=== PATIENT | female | born 1940 | race African-American/Black ===

== ENCOUNTER 2018-06-12 21:57 | Inpatient (IN) ==
[2018-06-12] MEDS ORDERED: SODIUM CHLORIDE 0.9% 1,000 ML IV STA (22:34)
[2018-06-12] MEDS ORDERED: FUROSEMIDE 100 MG/10 ML VIAL IV STA (22:34)
[2018-06-12 22:58] LABS: ABG Base Excess 2.8 MMOL/L (-2.5-2.5); ABG HCO3 26.8 MMOL/L (20-26); ABG Oxygen Saturation 93.3 % (95-100); ABG PCO2 49.3 MM HG (35-48); ABG PH 7.376 (7.35-7.45); ABG PO2 73.5 MM HG (80-95); ABG TCO2 25.7 MMOL/L (23-27)
[2018-06-12 23:00] LABS: Basophils % 0.3 % (0.0-0.8); Eosinophils % 0.4 % (0.00-10.9); Hematocrit 38.1 VOL% (35.7-47.0); Hemoglobin 11.8 GM/DL (12.0-16.0); Immature Granulocytes % 0.3 %; Immature Granulocytes Absolute 0.03 #; Lymphocytes # 2.4 10*3/uL (1.4-4.0); Mean Corpuscular Hemoglobin 30 PG (27-34); Mean Corpuscular Volume 96.5 FL (87-102); Mean Platelet Volume 11.7 FL (9.6-12.0); Monocytes # 0.8 10*3/uL (0.11-0.8); Monocytes % 9.1 % (1.7-12.7); Neutrophils # 5.8 10*3/uL (1.4-7.4); Neutrophils % 63.9 % (38.7-73.9); Platelet Count 178 T/CUMM (130-400); Red Blood Count 3.95 MC/CUMM (3.8-5.5); Red Cell Distribution Width 15.1 % (9.3-17.3); White Blood Count 9.1 T/CUMM (4-12)
[2018-06-12 23:50] LABS: Alanine Aminotransferase 17 U/L (13-56); Albumin 3.1 G/DL (3.4-5.0); Alkaline Phosphatase 65 U/L (45-117); Aspartate Amino Transferase 24 U/L (0-37); Bilirubin,Total < 0.39 MG/DL (0.2-1.0); Blood Urea Nitrogen 83 MG/DL (7-18); Calcium 8.7 MG/DL (8.5-10.1); Glucose 102 MG/DL (74-106); Osmolality,Calculated 316.4 MOS/KG (273-304); Potassium 3.1 MMOL/L (3.5-5.1); Sodium 147 MMOL/L (136-145); Total Protein 8.4 G/DL (6.4-8.3)
[2018-06-13 01:25] LABS: Apearance,Urine Slightly Hazy (Clear); Bacteria,Urine Occasional /HPF (Few); Bilirubin,Urine Negative (Negative); Blood, Urine Moderate mg/dL (Negative); Glucose,Urine (UA) Negative (Negative); Ketones,Urine Negative (Negative); Nitrite,Urine Negative (Negative); Protein,Urine Negative; RBC,Urine 2 /HPF (0-4); Squamous Epithelial Cell,Urine Few /HPF (0-10); Transitional Epi Cells,Urine Occasional /HPF (<1); Urine Color Straw (Yellow); Urine Specific Gravity 1.005 (1.001-1.035); Urine Urobilinogen < 2.0 EU/DL (0.2-1.0); WBC,Urine 15 /HPF (0-6)
[2018-06-13] MEDS ORDERED: SODIUM CHLORIDE 0.9% 1,000 ML IV STA (01:27)
[2018-06-13 02:30] LABS: ABG Base Excess -1.4 MMOL/L (-2.5-2.5); ABG HCO3 23.2 MMOL/L (20-26); ABG Oxygen Saturation 99.5 % (95-100); ABG PCO2 52.2 MM HG (35-48); ABG PH 7.299 (7.35-7.45); ABG TCO2 23.5 MMOL/L (23-27)
[2018-06-13] MEDS ORDERED: PIPERACILLIN/TAZOBACTAM 2,250 MG in SODIUM CHLORIDE 0.9% 100 ML IV STA (02:48)
[2018-06-13] MEDS ORDERED: PIPERACILLIN/TAZOBACTAM 3,375 MG in SODIUM CHLORIDE 0.9% 100 ML IV STA (03:24)
[2018-06-13] MEDS ORDERED: PIPERACILLIN/TAZOBACTAM 3,375 MG VIAL IV ONE (03:25)
[2018-06-13] MEDS: cefTRIAXone 1,000 MG in SYRINGE 1 EACH IV SCH (05:08)
[2018-06-13] MEDS: AZITHROMYCIN INJ 500 MG in SODIUM CHLORIDE 0.9% 250 ML IV SCH (07:12)
[2018-06-13] MEDS: ALBUTEROL/IPRATROPIUM 3 ML NEB RESP TX SCH ×3 (07:17→20:30)
[2018-06-13] MEDS ORDERED: MULTIVITAMIN LIQUID (CENTRUM) 60 ML BOTTLE PER TUBE SCH (08:00)
[2018-06-13] MEDS: THEOPHYLLINE 5.33 MG/ML 30 ML/BOTTLE PER TUBE SCH ×2 (08:40→20:26)
[2018-06-13] MEDS: ASPIRIN CHEW 81 MG TABLET PO SCH (08:42)
[2018-06-13] MEDS: VENLAFAXINE 75 MG TABLET PER TUBE SCH ×2 (08:42→20:25)
[2018-06-13] MEDS: BACLOFEN 10 MG TABLET PER TUBE SCH ×2 (08:42→20:25)
[2018-06-13] MEDS: LINACLOTIDE 145 MCG CAPSULE PER TUBE SCH (08:42)
[2018-06-13] MEDS: DILTIAZEM 60 MG TABLET PO SCH ×3 (08:42→20:26)
[2018-06-13] MEDS: PREGABALIN 100 MG CAPSULE PER TUBE SCH ×2 (08:42→20:25)
[2018-06-13] MEDS: FUROSEMIDE 40 MG TABLET PER TUBE SCH (08:43)
[2018-06-13] MEDS: METOPROLOL TARTRATE 50 MG TABLET PER TUBE SCH ×2 (08:43→20:26)
[2018-06-13] MEDS: CHOLECALCIFEROL 1,000 UNIT TABLET PER TUBE SCH (08:43)
[2018-06-13] MEDS: hydrALAZINE 25 MG TABLET PER TUBE SCH ×2 (08:43→20:26)
[2018-06-13] MEDS: FAMOTIDINE 20 MG TABLET PER TUBE SCH (08:43)
[2018-06-13] MEDS: MULTIVITAMIN LIQUID (CENTRUM) 60 ML BOTTLE PER TUBE SCH (08:56)
[2018-06-13] MEDS: LACTULOSE 20 GM/30 ML UDCUP PER TUBE SCH ×2 (08:56→20:26)
[2018-06-13] MEDS ORDERED: METHYLNALTREXONE BROMIDE 450 MG PER TUBE SCH (09:00)
[2018-06-13] MEDS ORDERED: GLUCAGON 1 MG VIAL IM PRN (10:02)
[2018-06-13] MEDS: INSULIN REGULAR 100 UNIT/ML SUBCUT SCH ×3 (13:43→23:24)
[2018-06-13] MEDS: ENOXAPARIN 30 MG/0.3 ML SYRINGE SUBCUT SCH (14:30)
[2018-06-13] MEDS: MONTELUKAST 10 MG TABLET PER TUBE SCH (17:56)
[2018-06-14] MEDS: ALBUTEROL/IPRATROPIUM 3 ML NEB RESP TX SCH ×4 (02:23→18:56)
[2018-06-14] MEDS: cefTRIAXone 1,000 MG in SYRINGE 1 EACH IV SCH (04:27)
[2018-06-14 04:44] LABS: Basophils % 0.2 % (0.0-0.8); Eosinophils % 0.1 % (0.00-10.9); Hematocrit 44.2 VOL% (35.7-47.0); Hemoglobin 13.2 GM/DL (12.0-16.0); Immature Granulocytes % 0.5 %; Immature Granulocytes Absolute 0.09 #; Lymphocytes # 1.2 10*3/uL (1.4-4.0); Lymphocytes % 7.1 % (21.3-54.2); Mean Corpuscular HGB Conc 29.9 GM/DL (32-36); Mean Corpuscular Hemoglobin 31 PG (27-34); Mean Corpuscular Volume 102.6 FL (87-102); Mean Platelet Volume 12.5 FL (9.6-12.0); Monocytes # 1.2 10*3/uL (0.11-0.8); Monocytes % 6.9 % (1.7-12.7); NRBC # 0.02 10*3/uL; Neutrophils # 14.5 10*3/uL (1.4-7.4); Neutrophils % 85.2 % (38.7-73.9); Platelet Count 128 T/CUMM (130-400); Red Blood Count 4.31 MC/CUMM (3.8-5.5); Red Cell Distribution Width 15.5 % (9.3-17.3)
[2018-06-14 05:23] LABS: Prealbumin 20.6 MG/DL (20-40)
[2018-06-14] MEDS: INSULIN REGULAR 100 UNIT/ML SUBCUT SCH ×4 (05:53→23:55)
[2018-06-14] MEDS: AZITHROMYCIN INJ 500 MG in SODIUM CHLORIDE 0.9% 250 ML IV SCH (05:54)
[2018-06-14 06:11] LABS: Albumin 2.6 G/DL (3.4-5.0); Bilirubin,Total 0.4 MG/DL (0.2-1.0); Calcium 8.6 MG/DL (8.5-10.1); Osmolality,Calculated 313.1 MOS/KG (273-304); Potassium 2.9 MMOL/L (3.5-5.1); Total Protein 8.6 G/DL (6.4-8.3)
[2018-06-14] MEDS: MULTIVITAMIN LIQUID (CENTRUM) 60 ML BOTTLE PER TUBE SCH (08:25)
[2018-06-14] MEDS: THEOPHYLLINE 5.33 MG/ML 30 ML/BOTTLE PER TUBE SCH ×2 (08:25→20:48)
[2018-06-14] MEDS: CHOLECALCIFEROL 1,000 UNIT TABLET PER TUBE SCH (08:25)
[2018-06-14] MEDS: ASPIRIN CHEW 81 MG TABLET PO SCH (08:26)
[2018-06-14] MEDS: PREGABALIN 100 MG CAPSULE PER TUBE SCH ×2 (08:26→20:47)
[2018-06-14] MEDS: LINACLOTIDE 145 MCG CAPSULE PER TUBE SCH (08:26)
[2018-06-14] MEDS: METOPROLOL TARTRATE 50 MG TABLET PER TUBE SCH ×2 (08:26→20:47)
[2018-06-14] MEDS: FAMOTIDINE 20 MG TABLET PER TUBE SCH (08:26)
[2018-06-14] MEDS: hydrALAZINE 25 MG TABLET PER TUBE SCH ×2 (08:26→20:47)
[2018-06-14] MEDS: FUROSEMIDE 40 MG TABLET PER TUBE SCH (08:26)
[2018-06-14] MEDS: BACLOFEN 10 MG TABLET PER TUBE SCH ×2 (08:26→20:47)
[2018-06-14] MEDS: DILTIAZEM 60 MG TABLET PO SCH ×3 (08:26→20:47)
[2018-06-14] MEDS: VENLAFAXINE 75 MG TABLET PER TUBE SCH ×2 (08:26→20:47)
[2018-06-14] MEDS: LACTULOSE 20 GM/30 ML UDCUP PER TUBE SCH (08:27)
[2018-06-14] MEDS: POTASSIUM CHLORIDE RIDER 10 MEQ in PREMIX 1 EACH IV SCH ×2 (08:43→09:50)
[2018-06-14] MEDS: POTASSIUM CHLORIDE 20 MEQ/15 ML UDCUP PER TUBE PRN ×2 (10:09→14:02)
[2018-06-14] MEDS: ENOXAPARIN 30 MG/0.3 ML SYRINGE SUBCUT SCH (14:07)
[2018-06-14] MEDS: MONTELUKAST 10 MG TABLET PER TUBE SCH (16:27)
[2018-06-15] MEDS: POTASSIUM CHLORIDE 20 MEQ/15 ML UDCUP PER TUBE PRN ×3 (00:06→08:10)
[2018-06-15] MEDS: ALBUTEROL/IPRATROPIUM 3 ML NEB RESP TX SCH ×4 (00:58→19:45)
[2018-06-15] MEDS: cefTRIAXone 1,000 MG in SYRINGE 1 EACH IV SCH (03:08)
[2018-06-15] MEDS: INSULIN REGULAR 100 UNIT/ML SUBCUT SCH ×3 (05:18→18:55)
[2018-06-15 05:24] LABS: Calcium 8.9 MG/DL (8.5-10.1); Potassium 3.6 MMOL/L (3.5-5.1)
[2018-06-15] MEDS: AZITHROMYCIN INJ 500 MG in SODIUM CHLORIDE 0.9% 250 ML IV SCH (05:30)
[2018-06-15] MEDS: MULTIVITAMIN LIQUID (CENTRUM) 60 ML BOTTLE PER TUBE SCH (08:10)
[2018-06-15] MEDS: LINACLOTIDE 145 MCG CAPSULE PER TUBE SCH (08:10)
[2018-06-15] MEDS: VENLAFAXINE 75 MG TABLET PER TUBE SCH ×2 (08:11→20:07)
[2018-06-15] MEDS: PREGABALIN 100 MG CAPSULE PER TUBE SCH ×2 (08:11→20:05)
[2018-06-15] MEDS: FUROSEMIDE 40 MG TABLET PER TUBE SCH (08:11)
[2018-06-15] MEDS: FAMOTIDINE 20 MG TABLET PER TUBE SCH (08:11)
[2018-06-15] MEDS: ASPIRIN CHEW 81 MG TABLET PO SCH (08:11)
[2018-06-15] MEDS: BACLOFEN 10 MG TABLET PER TUBE SCH ×2 (08:11→20:07)
[2018-06-15] MEDS: DILTIAZEM 60 MG TABLET PO SCH ×3 (08:11→20:07)
[2018-06-15] MEDS: CHOLECALCIFEROL 1,000 UNIT TABLET PER TUBE SCH (08:12)
[2018-06-15] MEDS: hydrALAZINE 25 MG TABLET PER TUBE SCH ×2 (08:12→20:04)
[2018-06-15] MEDS: METOPROLOL TARTRATE 50 MG TABLET PER TUBE SCH ×2 (08:12→20:07)
[2018-06-15] MEDS: THEOPHYLLINE 5.33 MG/ML 30 ML/BOTTLE PER TUBE SCH ×2 (08:13→20:15)
[2018-06-15] MEDS: fentaNYL 25 MCG/HR PATCH TRANSDERM SCH (08:14)
[2018-06-15] MEDS ORDERED: CIPROFLOXACIN 100 MG/ML 100 ML/BOTTLE PEG SCH (10:00)
[2018-06-15] MEDS: ENOXAPARIN 30 MG/0.3 ML SYRINGE SUBCUT SCH (13:05)
[2018-06-15] MEDS ORDERED: hydrALAZINE 20 MG/1 ML VIAL ONE ×2 (17:42→19:57)
[2018-06-15] MEDS: MONTELUKAST 10 MG TABLET PER TUBE SCH (17:50)
[2018-06-15] MEDS: DEXTROSE 50% 25 GM/50 ML VIAL IV PRN (18:53)
[2018-06-15] MEDS: hydrALAZINE 20 MG/1 ML VIAL IV PRN (20:00)
[2018-06-16] MEDS: INSULIN REGULAR 100 UNIT/ML SUBCUT SCH ×4 (00:14→17:45)
[2018-06-16] MEDS: DEXTROSE 50% 25 GM/50 ML VIAL IV PRN (00:14)
[2018-06-16] MEDS: hydrALAZINE 20 MG/1 ML VIAL IV PRN ×2 (00:16→04:38)
[2018-06-16] MEDS: ALBUTEROL/IPRATROPIUM 3 ML NEB RESP TX SCH ×4 (01:26→19:20)
[2018-06-16 04:24] LABS: Calcium 9.1 MG/DL (8.5-10.1); Osmolality,Calculated 299.4 MOS/KG (273-304); Potassium 3.9 MMOL/L (3.5-5.1); Prealbumin 13.9 MG/DL (20-40)
[2018-06-16] MEDS: cefTRIAXone 1,000 MG in SYRINGE 1 EACH IV SCH (04:38)
[2018-06-16] MEDS: ASPIRIN CHEW 81 MG TABLET PO SCH (08:48)
[2018-06-16] MEDS: BACLOFEN 10 MG TABLET PER TUBE SCH ×2 (08:48→21:29)
[2018-06-16] MEDS: METOPROLOL TARTRATE 50 MG TABLET PER TUBE SCH (08:48)
[2018-06-16] MEDS: FAMOTIDINE 20 MG TABLET PER TUBE SCH (08:49)
[2018-06-16] MEDS: FUROSEMIDE 40 MG TABLET PER TUBE SCH (08:49)
[2018-06-16] MEDS: hydrALAZINE 25 MG TABLET PER TUBE SCH ×2 (08:49→21:30)
[2018-06-16] MEDS: CHOLECALCIFEROL 1,000 UNIT TABLET PER TUBE SCH (08:49)
[2018-06-16] MEDS: PREGABALIN 100 MG CAPSULE PER TUBE SCH ×2 (08:49→21:31)
[2018-06-16] MEDS: VENLAFAXINE 75 MG TABLET PER TUBE SCH ×2 (08:49→21:29)
[2018-06-16] MEDS: DILTIAZEM 60 MG TABLET PO SCH ×3 (08:49→21:30)
[2018-06-16] MEDS: LINACLOTIDE 145 MCG CAPSULE PER TUBE SCH (08:50)
[2018-06-16] MEDS ORDERED: cloNIDine 0.3 MG/24 HR PATCH TRANSDERM SCH (11:00)
[2018-06-16] MEDS: ENOXAPARIN 30 MG/0.3 ML SYRINGE SUBCUT SCH (11:42)
[2018-06-16] MEDS: THEOPHYLLINE 5.33 MG/ML 30 ML/BOTTLE PER TUBE SCH ×2 (11:43→21:29)
[2018-06-16] MEDS: MULTIVITAMIN LIQUID (CENTRUM) 60 ML BOTTLE PER TUBE SCH (11:44)
[2018-06-16] MEDS: MONTELUKAST 10 MG TABLET PER TUBE SCH (16:00)
[2018-06-16] MEDS: METOPROLOL TARTRATE 100 MG TABLET PER TUBE SCH (21:30)
[2018-06-17] MEDS: INSULIN REGULAR 100 UNIT/ML SUBCUT SCH ×4 (00:15→18:34)
[2018-06-17] MEDS: ALBUTEROL/IPRATROPIUM 3 ML NEB RESP TX SCH ×4 (01:42→20:25)
[2018-06-17] MEDS: cefTRIAXone 1,000 MG in SYRINGE 1 EACH IV SCH (03:45)
[2018-06-17 07:58] LABS: Calcium 8.8 MG/DL (8.5-10.1); Osmolality,Calculated 302.4 MOS/KG (273-304); Potassium 3.7 MMOL/L (3.5-5.1)
[2018-06-17] MEDS: ASPIRIN CHEW 81 MG TABLET PO SCH (10:31)
[2018-06-17] MEDS: hydrALAZINE 25 MG TABLET PER TUBE SCH ×2 (10:31→21:12)
[2018-06-17] MEDS: FUROSEMIDE 40 MG TABLET PER TUBE SCH (10:32)
[2018-06-17] MEDS: DILTIAZEM 60 MG TABLET PO SCH ×3 (10:32→21:12)
[2018-06-17] MEDS: VENLAFAXINE 75 MG TABLET PER TUBE SCH ×2 (10:32→21:12)
[2018-06-17] MEDS: BACLOFEN 10 MG TABLET PER TUBE SCH ×2 (10:33→21:12)
[2018-06-17] MEDS: FAMOTIDINE 20 MG TABLET PER TUBE SCH (10:33)
[2018-06-17] MEDS: PREGABALIN 100 MG CAPSULE PER TUBE SCH ×2 (10:33→21:12)
[2018-06-17] MEDS: METOPROLOL TARTRATE 100 MG TABLET PER TUBE SCH ×2 (10:33→21:12)
[2018-06-17] MEDS: PIPERACILLIN/TAZOBACTAM 3,375 MG in SODIUM CHLORIDE 0.9% 100 ML IV SCH ×2 (10:45→17:50)
[2018-06-17] MEDS: THEOPHYLLINE 5.33 MG/ML 30 ML/BOTTLE PER TUBE SCH ×2 (10:46→21:12)
[2018-06-17] MEDS: MULTIVITAMIN LIQUID (CENTRUM) 60 ML BOTTLE PER TUBE SCH (10:46)
[2018-06-17] MEDS: ENOXAPARIN 40 MG/0.4 ML SYRINGE SUBCUT SCH (10:47)
[2018-06-17] MEDS: CHOLECALCIFEROL 1,000 UNIT TABLET PER TUBE SCH (12:55)
[2018-06-17] MEDS: LINACLOTIDE 145 MCG CAPSULE PER TUBE SCH (12:56)
[2018-06-17] MEDS: VANCOMYCIN INJ 1,250 MG in SODIUM CHLORIDE 0.9% 250 ML IV SCH (14:13)
[2018-06-17] MEDS: MONTELUKAST 10 MG TABLET PER TUBE SCH (17:46)
[2018-06-18] MEDS: INSULIN REGULAR 100 UNIT/ML SUBCUT SCH ×4 (01:15→19:03)
[2018-06-18] MEDS: ALBUTEROL/IPRATROPIUM 3 ML NEB RESP TX SCH ×4 (01:25→19:54)
[2018-06-18] MEDS: PIPERACILLIN/TAZOBACTAM 3,375 MG in SODIUM CHLORIDE 0.9% 100 ML IV SCH ×3 (02:34→17:23)
[2018-06-18 06:24] LABS: Basophils % 0.5 % (0.0-0.8); Eosinophils # 0.1 10*3/uL (0.0-0.87); Eosinophils % 1.4 % (0.00-10.9); Hematocrit 35.9 VOL% (35.7-47.0); Hemoglobin 11.4 GM/DL (12.0-16.0); Immature Granulocytes % 0.4 %; Immature Granulocytes Absolute 0.03 #; Lymphocytes % 25.6 % (21.3-54.2); Mean Corpuscular HGB Conc 31.8 GM/DL (32-36); Mean Corpuscular Hemoglobin 30 PG (27-34); Mean Corpuscular Volume 93.2 FL (87-102); Mean Platelet Volume 12.5 FL (9.6-12.0); Monocytes # 0.5 10*3/uL (0.11-0.8); Monocytes % 6.7 % (1.7-12.7); Neutrophils # 5.2 10*3/uL (1.4-7.4); Neutrophils % 65.4 % (38.7-73.9); Platelet Count 134 T/CUMM (130-400); Red Blood Count 3.85 MC/CUMM (3.8-5.5); Red Cell Distribution Width 15.7 % (9.3-17.3); White Blood Count 7.9 T/CUMM (4-12)
[2018-06-18 07:18] LABS: Calcium 8.9 MG/DL (8.5-10.1); Osmolality,Calculated 298.7 MOS/KG (273-304); Potassium 3.8 MMOL/L (3.5-5.1)
[2018-06-18] MEDS: METOPROLOL TARTRATE 100 MG TABLET PER TUBE SCH ×2 (10:41→21:09)
[2018-06-18] MEDS: CHOLECALCIFEROL 1,000 UNIT TABLET PER TUBE SCH (10:41)
[2018-06-18] MEDS: THEOPHYLLINE 5.33 MG/ML 30 ML/BOTTLE PER TUBE SCH ×2 (10:41→21:08)
[2018-06-18] MEDS: ENOXAPARIN 40 MG/0.4 ML SYRINGE SUBCUT SCH (10:41)
[2018-06-18] MEDS: FUROSEMIDE 40 MG TABLET PER TUBE SCH (10:42)
[2018-06-18] MEDS: FAMOTIDINE 20 MG TABLET PER TUBE SCH (10:42)
[2018-06-18] MEDS: DILTIAZEM 60 MG TABLET PO SCH ×3 (10:42→21:09)
[2018-06-18] MEDS: ASPIRIN CHEW 81 MG TABLET PO SCH (10:42)
[2018-06-18] MEDS: BACLOFEN 10 MG TABLET PER TUBE SCH ×2 (10:42→21:09)
[2018-06-18] MEDS: VENLAFAXINE 75 MG TABLET PER TUBE SCH ×2 (10:43→21:09)
[2018-06-18] MEDS: MULTIVITAMIN LIQUID (CENTRUM) 60 ML BOTTLE PER TUBE SCH (10:43)
[2018-06-18] MEDS: PREGABALIN 100 MG CAPSULE PER TUBE SCH ×2 (10:43→21:09)
[2018-06-18] MEDS: hydrALAZINE 25 MG TABLET PER TUBE SCH ×2 (10:43→21:10)
[2018-06-18] MEDS: fentaNYL 25 MCG/HR PATCH TRANSDERM SCH (10:43)
[2018-06-18] MEDS: LINACLOTIDE 145 MCG CAPSULE PER TUBE SCH (10:44)
[2018-06-18] MEDS: VANCOMYCIN INJ 1,250 MG in SODIUM CHLORIDE 0.9% 250 ML IV SCH (14:51)
[2018-06-18] MEDS: MONTELUKAST 10 MG TABLET PER TUBE SCH (17:23)
[2018-06-19] MEDS: ALBUTEROL/IPRATROPIUM 3 ML NEB RESP TX SCH ×4 (00:33→19:37)
[2018-06-19] MEDS: PIPERACILLIN/TAZOBACTAM 3,375 MG in SODIUM CHLORIDE 0.9% 100 ML IV SCH ×3 (00:57→16:35)
[2018-06-19] MEDS: INSULIN REGULAR 100 UNIT/ML SUBCUT SCH ×4 (01:09→19:23)
[2018-06-19] MEDS: BACLOFEN 10 MG TABLET PER TUBE SCH ×2 (10:22→21:05)
[2018-06-19] MEDS: FUROSEMIDE 40 MG TABLET PER TUBE SCH (10:22)
[2018-06-19] MEDS: VENLAFAXINE 75 MG TABLET PER TUBE SCH ×2 (10:22→21:05)
[2018-06-19] MEDS: DILTIAZEM 60 MG TABLET PO SCH ×3 (10:23→21:04)
[2018-06-19] MEDS: FAMOTIDINE 20 MG TABLET PER TUBE SCH (10:23)
[2018-06-19] MEDS: CHOLECALCIFEROL 1,000 UNIT TABLET PER TUBE SCH (10:24)
[2018-06-19] MEDS: METOPROLOL TARTRATE 100 MG TABLET PER TUBE SCH ×2 (10:24→21:05)
[2018-06-19] MEDS: hydrALAZINE 25 MG TABLET PER TUBE SCH ×2 (10:25→21:05)
[2018-06-19] MEDS: ASPIRIN CHEW 81 MG TABLET PO SCH (10:25)
[2018-06-19] MEDS: MULTIVITAMIN LIQUID (CENTRUM) 60 ML BOTTLE PER TUBE SCH (10:25)
[2018-06-19] MEDS: THEOPHYLLINE 5.33 MG/ML 30 ML/BOTTLE PER TUBE SCH ×2 (10:26→21:06)
[2018-06-19] MEDS: LINACLOTIDE 145 MCG CAPSULE PER TUBE SCH (10:26)
[2018-06-19] MEDS: PREGABALIN 100 MG CAPSULE PER TUBE SCH ×2 (10:28→21:05)
[2018-06-19] MEDS: ENOXAPARIN 40 MG/0.4 ML SYRINGE SUBCUT SCH (10:28)
[2018-06-19] MEDS: VANCOMYCIN INJ 1,250 MG in SODIUM CHLORIDE 0.9% 250 ML IV SCH (14:45)
[2018-06-19] MEDS: MONTELUKAST 10 MG TABLET PER TUBE SCH (16:32)
[2018-06-19 16:47] LABS: ABG Base Excess 1.7 MMOL/L (-2.5-2.5); ABG HCO3 25.9 MMOL/L (20-26); ABG Oxygen Saturation 95.7 % (95-100); ABG PCO2 46.5 MM HG (35-48); ABG PH 7.378 (7.35-7.45); ABG PO2 80.1 MM HG (80-95); ABG TCO2 24.7 MMOL/L (23-27)
[2018-06-20] MEDS: INSULIN REGULAR 100 UNIT/ML SUBCUT SCH ×2 (00:21→07:11)
[2018-06-20] MEDS: ALBUTEROL/IPRATROPIUM 3 ML NEB RESP TX SCH ×2 (01:19→06:55)
[2018-06-20] MEDS: PIPERACILLIN/TAZOBACTAM 3,375 MG in SODIUM CHLORIDE 0.9% 100 ML IV SCH (02:03)
[2018-06-20 07:33] VITALS: BP 154/80
[2018-06-20 07:57] LABS: Calcium 8.5 MG/DL (8.5-10.1); Osmolality,Calculated 293.7 MOS/KG (273-304); Potassium 3.9 MMOL/L (3.5-5.1)
[2018-06-20 08:38] LABS: Prealbumin 17.3 MG/DL (20-40)
[2018-06-20] MEDS: DILTIAZEM 60 MG TABLET PO SCH (09:49)
[2018-06-20] MEDS: CHOLECALCIFEROL 1,000 UNIT TABLET PER TUBE SCH (09:49)
[2018-06-20] MEDS: ASPIRIN CHEW 81 MG TABLET PO SCH (09:50)
[2018-06-20] MEDS: FUROSEMIDE 40 MG TABLET PER TUBE SCH (09:50)
[2018-06-20] MEDS: BACLOFEN 10 MG TABLET PER TUBE SCH (09:50)
[2018-06-20] MEDS: FAMOTIDINE 20 MG TABLET PER TUBE SCH (09:50)
[2018-06-20] MEDS: hydrALAZINE 25 MG TABLET PER TUBE SCH (09:50)
[2018-06-20] MEDS: METOPROLOL TARTRATE 100 MG TABLET PER TUBE SCH (09:50)
[2018-06-20] MEDS: VENLAFAXINE 75 MG TABLET PER TUBE SCH (09:50)
[2018-06-20] MEDS: PREGABALIN 100 MG CAPSULE PER TUBE SCH (09:51)
[2018-06-20] MEDS: LINACLOTIDE 145 MCG CAPSULE PER TUBE SCH (09:51)
[2018-06-20] MEDS: THEOPHYLLINE 5.33 MG/ML 30 ML/BOTTLE PER TUBE SCH (09:51)
[2018-06-20] MEDS: ENOXAPARIN 40 MG/0.4 ML SYRINGE SUBCUT SCH (09:51)
[2018-06-20 09:59] LABS: ABG Base Excess 3.3 MMOL/L (-2.5-2.5); ABG HCO3 27.3 MMOL/L (20-26); ABG PCO2 49.7 MM HG (35-48); ABG PH 7.377 (7.35-7.45); ABG PO2 89.3 MM HG (80-95); ABG TCO2 26.6 MMOL/L (23-27)
[2018-06-20] MEDS: MULTIVITAMIN LIQUID (CENTRUM) 60 ML BOTTLE PER TUBE SCH (11:14)
== END 2018-06-20 11:53 | DRG 177 ==
LOC: EDUNIT# → N.ED 21:57 → SUATTDRO 06-13 03:09 → N.EDINP 06-13 03:09 → N.5E 06-13 03:34 → N.ICU 06-13 04:05 → N.2E 06-16 16:38
PROVIDERS: ADMIT Internal Medicine; ATTEND Internal Medicine